=== PATIENT | female | born 1930 | race Caucasian/White ===

== ENCOUNTER 2018-04-21 04:10 | Observation (INO) | payer MEDICARE, BC ==
[~2018-04-21] VITALS: Ht 157.5 cm; Wt 55.3 kg
[2018-04-21] VITALS (9 sets, daily range): BP systolic 159–218; BP diastolic 72–100
[2018-04-21] MEDS ORDERED: ACETAMINOPHEN-H1 TA2 PO (05:03)
[2018-04-21] MEDS ORDERED: PROPRANOLOL HCL40 M2 PO (05:04)
[2018-04-21] MEDS ORDERED: LISINOPRIL10 MG PO (05:04)
[2018-04-21] MEDS ORDERED: ZYRTEC ALLERGY10 MG PO ×2 (05:04→05:05)
[2018-04-21] MEDS ORDERED: SIMVASTATIN20 M1 PO (05:04)
[2018-04-21] MEDS ORDERED: ZANTAC150 M1 PO (05:05)
[2018-04-21] MEDS ORDERED: NATURE'S BLEND500 M5 PO (05:06)
[2018-04-21] MEDS ORDERED: SYSTANE 0.3-0.415 ML OU (05:07)
[2018-04-21] MEDS ORDERED: FISH OIL1 IU PO (05:08)
[2018-04-21] MEDS ORDERED: SENOKOT NATURA8.6 MG PO (05:09)
[2018-04-22] VITALS (8 sets, daily range): BP systolic 161–212; BP diastolic 74–101
[2018-04-22 09:38] LABS: EOS % 0.5 % (1.0-5.0); HEMOGLOBIN 12.3 g/dL (12.5-16.0); LYMPH# 1.9 (1.50-4.00); MEAN CELL VOLUME 91 fl (78-100); MEAN CORPUSCULAR HEMOGLOBIN 29 pg (27-31); MEAN CORPUSCULAR HGB CONC 32 g/dL (33-37); MEAN PLATELET VOLUME 10.2 fl (7.4-10.4); MONO # 0.7 (0.20-0.80); NEU # 5.4 (1.40-6.50); PLATELET COUNT 337 K/mm3 (130-400); RED BLOOD COUNT 4.18 M/mm3 (4.10-5.30); RED CELL DISTRIBUTION WIDTH 13.5 % (11.5-14.5); WHITE BLOOD COUNT 8.1 K/mm3 (4.8-10.8)
[2018-04-22 09:47] LABS: ALBUMIN 3.6 g/dL (3.5-5.0); POTASSIUM 3.8 mmol/L (3.6-5.0); TOTAL BILIRUBIN 1.1 mg/dL (0.2-1.3); TOTAL PROTEIN 6.9 g/dL (6.3-8.2)
[2018-04-23] VITALS (8 sets, daily range): BP systolic 75–236; BP diastolic 38–119
[2018-04-23 10:09] LABS: EOS % 0.7 % (1.0-5.0); HEMATOCRIT 33.6 % (37.0-47.0); HEMOGLOBIN 10.9 g/dL (12.5-16.0); LYMPH# 1.5 (1.50-4.00); MEAN CELL VOLUME 90 fl (78-100); MEAN CORPUSCULAR HEMOGLOBIN 29 pg (27-31); MEAN CORPUSCULAR HGB CONC 32 g/dL (33-37); MEAN PLATELET VOLUME 9.6 fl (7.4-10.4); MONO # 0.6 (0.20-0.80); NEU # 3.5 (1.40-6.50); PLATELET COUNT 296 K/mm3 (130-400); RED BLOOD COUNT 3.72 M/mm3 (4.10-5.30); RED CELL DISTRIBUTION WIDTH 13.2 % (11.5-14.5); WHITE BLOOD COUNT 5.7 K/mm3 (4.8-10.8)
[2018-04-23 10:27] LABS: ALBUMIN 3.1 g/dL (3.5-5.0); CALCIUM 8.4 mg/dL (8.4-10.2); POTASSIUM 3.6 mmol/L (3.6-5.0); TOTAL BILIRUBIN 0.9 mg/dL (0.2-1.3)
== END 2018-04-23 14:20 | disposition short-term general hospital (02) ==
LOC: MED/SURG 04:10
PROVIDERS: Nurse Practitioner; Nurse Practitioner Primary Care; ADMIT Family Medicine
DX: N39.0 Urinary tract infection, site not specified (principal); I10 Essential (primary) hypertension; Z91.81 History of falling; S52.502D Unspecified fracture of the lower end of left radius, subsequent encounter for closed fracture with routine healing; W19.XXXD Unspecified fall, subsequent encounter; K59.00 Constipation, unspecified; R41.82 Altered mental status, unspecified; Z79.899 Other long term (current) drug therapy; T46.5X6A Underdosing of other antihypertensive drugs, initial encounter; Z91.138 Patient's unintentional underdosing of medication regimen for other reason; R53.1 Weakness; E78.5 Hyperlipidemia, unspecified; K21.9 Gastro-esophageal reflux disease without esophagitis
CPT/HCPCS: G0378; G0379; J7030